=== PATIENT | female | born 1965 | race Caucasian/White ===

== ENCOUNTER 2025-04-04 12:37 | Emergency (ER) | payer OTHER, SELFPAY ==
[2025-04-04 12:39] VITALS: BP 124/71; PULSE 78; RESP 16; TEMP 36.6; O2SAT 98; BMI 22.8
--- NOTE | 2025-04-04 13:10 | EKG12_ITS ---
Test Reason : Blood Pressure : */* mmHG Vent. Rate : 94 BPM Atrial Rate : 94 BPM P-R Int : 186 ms QRS Dur : 80 ms QT Int : 338 ms P-R-T Axes : 48 20 26 degrees QTcB Int : 422 ms Normal sinus rhythm Normal ECG Confirmed by ANI PATEL, JUSTIN ([id number]), department editor ANGIE SPENCER ([id number]) on 04/05/2025 8:37:41 AM Referred By: Confirmed By: JUSTIN LAW MD
--- NOTE | 2025-04-04 13:11 | EDS_ITS ---
HPI History of Present Illness Chief Complaint: Chest Pain Informant: patient Onset/Context/Timing Onset: Weeks (1) Activity at onset: gradual Timing: Continuous Quality: Positive for Dull Location: Left Chest and - (Left neck) Worsened By: Nothing Relieved By: Nothing Associated Symptoms: Negative for Nausea, Vomiting, Diaphoresis, Dyspnea, Cough, Fever, Lightheadedness, Acid Reflux or Palpitations Narrative Narrative: Patient presents with left-sided neck and chest pain that began 1 week ago. Patient states it has been constant but waxes and wanes. Patient states it came on gradually. Patient describes it as dull. Patient states it is over the left neck and left chest area. Patient states nothing makes her symptoms better nothing makes them worse. Patient denies any shortness of breath or cough. Patient denies any fevers or chills. Patient denies any palpitations. CVD Risk Factors: Negative for Hypertension, Diabetes, Hypercholesterolemia, Family History 1' </=55 or Smoking PE Risk Factors: Negative for Recent Travel/Surgery, Recent Immobilization, Prior DVT or PE, Cancer or OCP + Smoking + >/=35 PFSH PFSH Medical History Anxiety Allergy/AdvReac Type Severity Reaction Status Date / Time amoxicillin Allergy Rash Verified 04/04/25 12:43 erythromycin base Allergy Rash Verified 04/04/25 12:43 Surgical History no surgical history no surgical history Social History housing: house Smoking Status: Never smoker [facility] ED Constitutional Constitutional ED: Denies chills or fever(s) Eyes Eyes: Denies blurry vision or change in vision ENT ENT ED: Denies rhinorrhea or sore throat Cardiovascular Cardiovascular: Reports chest pain; Denies palpitations Respiratory/Chest Respiratory/Chest: Denies cough or dyspnea Gastrointestinal Gastrointestinal: Denies nausea or vomiting Genitourinary Genitourinary ED: Denies dysuria or hematuria Musculoskeletal Musculoskeletal: Reports neck pain; Denies back pain Integumentary Denies abscess or rash Neurologic Neurologic: Denies headache(s) or weakness Allergic/Immunologic Allergic/Immunologic ED: Denies mouth swelling or urticaria EXAM Physical Exam Const Vital Signs: 04/04/25 12:39 04/04/25 12:55 04/04/25 12:55 Temperature 97.8 F Temperature Source Oral Pulse Rate 78 Respiratory Rate 16 Respiratory Effort Normal Non-Labored Normal Non-Labored Respiratory Pattern Normal Blood Pressure 124/71 H Blood Pressure Mean 88 Pulse Ox 98 Oxygen Delivery Method Room Air 04/04/25 13:16 04/04/25 13:39 04/04/25 14:00 Temperature Temperature Source Pulse Rate 90 95 Respiratory Rate 16 Respiratory Effort Respiratory Pattern Blood Pressure 120/64 119/70 Blood Pressure Mean 82 86 Pulse Ox 100 99 Oxygen Delivery Method Room Air Positive well nourished and well developed Constitutional Narrative: BMI is 22.8. General Appearance ED: well developed and NAD HEENT Reports moist mucous membranes normocephalic and atraumatic Neck supple and no JVD Chest Wall palpation of chest normal Resp normal respiratory effort and clear to auscultation bilaterally Cardio regular rate and regular rhythm GI soft to palpation, non-tender and non-distended Extremity normal to inspection Neuro oriented x3, CN's II-XII intact bilaterally and no sensory deficits noted Sensorium / Orientation: awake and alert Motor Exam: strength 5/5 throughout Psych mental status grossly normal Heart Score History: Slightly/Non-Suspicious ECG: Normal Age: >45 - <65 years Risk Factors: No Risk Factors Troponin: </= Normal Limit Score: 1 MDM MDM MDM Narrative Medical decision making narrative: Differential diagnosis includes cardiac dysrhythmia, cardiac ischemia, pneumonia, bronchitis, electrolyte abnormality, gastroesophageal reflux disease, and anxiety. EKG will be obtained to assess for cardiac dysrhythmia and cardiac ischemia. Chest x-ray will be obtained to assess for pneumonia and bronchitis. CBC will be obtained to assess for leukocytosis and anemia. Basic metabolic profile will be obtained to assess for electrolyte abnormality and renal function. High-sensitivity troponin will be obtained to assess for cardiac ischemia. History & Record Review Additional record(s) reviewed:: No prior records Lab Data Attestation: I reviewed the patient's lab results. Lab results narrative: CBC was reviewed and was within normal. Basic metabolic profile was reviewed and was essentially within normal limits. High-sensitivity troponin was reviewed and was less than 6. Labs: Laboratory Results - last 24 hr 04/04/25 12:53 WBC 9.8 RBC 4.71 Hgb 15.3 H Hct 43.7 MCV 92.8 MCH 32.5 H MCHC 35.0 RDW Std Deviation 44.6 H RDW Coeff of [place] 13.1 Plt Count 247 MPV 9.8 Immature Gran % (Auto) 0.400 Neut % (Auto) 68.8 Lymph % (Auto) 23.1 [place] % (Auto) 5.8 Eos % (Auto) 1.3 Baso % (Auto) 0.6 Absolute Neuts (auto) 6.7 Absolute Lymphs (auto) 2.26 Nucleated RBC % 0 Sodium 135 Potassium 4.5 Chloride 97 L Carbon Dioxide 22.2 Anion Gap 16 H BUN 10 Creatinine 0.66 L Estim Creat Clear Calc 92.58 Est GFR (MDRD) Non-Af 101 BUN/Creatinine Ratio 14.7 Glucose 109 H Calcium 9.6 Troponin T High Sens < 6 Radiography Chest X-Ray - ED: 2 View, Read by ED Physician, Read by Radiologist and No Acute Disease Diagnostic Testing: Clinical Impression(s) from Imaging Studies Chest X-Ray 04/04/25 13:15 IMPRESSION: No acute cardiopulmonary process. Reading Location: [facility] PA and lateral chest x-ray was obtained. There are 2 views. On my independent interpretation, lung zamudio are clear. There is normal cardiac silhouette. Bon y thorax is normal. There is no acute process noted. Radiologist also interpreted the x-ray and agrees. EKG Initial EKG: Attestation: I personally reviewed and interpreted this EKG as follows: Interpretation: Sinus Rhythm (94) and No Acute Injury Pattern Comments: EKG was obtained. On my independent interpretation, it showed a normal sinus rhythm with a rate of 94. IA interval, QRS interval, and QTc intervals were all normal. [place] was normal. There are no acute ST or T wave changes. Prior EKG tracings: not available for review Prior: No Prior Treatment and Re-Evaluation :: Patient was given aspirin here. Patient was advised of her findings. Patient has a HEART score of 1. Patient was advised that this is low risk for acute cardiac event. Patient was instructed to follow-up with her primary care physician in 5 to 7 days. Patient understood and was agreeable with the plan. All questions were answered. Discharge Plan Triage Chief Complaint: Chest Pain Other Complaint: Other, Pain/Inj ED Provider: Matthieu Soria Dx/Rx/DC Orders Clinical Impression: Chest pain, Neck pain on left side Instructions: ED Chest Pain, Uncertain Cause, ED Neck Pain Primary Care Provider: Leelee Trejo Referrals: Leelee Trejo, [facility] [Primary Care Provider, Family Practice] - 5-7 Days Print Language: [place] Disposition Disposition: Home, Self Care
--- NOTE | 2025-04-04 13:15 | RAD_ITS ---
PROCEDURE: CHEST PA AND LATERAL 04/04/2025 REASON FOR EXAM: CHEST PAIN TECHNIQUE: Procedure Code: RADCXR Modality: DX Procedure: CHEST PA AND LATERAL COMPARISON: None FINDINGS: Lungs: The lungs are symmetrically expanded. There is no consolidation. There is no peribronchial thickening. There is no pulmonary vascular redistribution. Pleura: No pleural effusion seen. There o evidence of pneumothorax. Heart and mediastinum: No mediastinal widening or mediastinal shift. The cardiac silhouette is not enlarged. Osseous: No acute fracture is seen. RAD/Chest PA and Lateral IMPRESSION: No acute cardiopulmonary process. Reading Location: [id number]
[2025-04-04 13:18] LABS: Hematocrit 43.7 % (37-47); Hemoglobin 15.3 g/dL (12.0-15.0); Immature Granulocytes Count 0.040 X10^3/uL (0.0-0.0); Mean Corp Hgb Conc 35.0 g/dL (32-36); Mean Corpuscular Volume 92.8 fL (81-99); Mean Platelet Vol. 9.8 fl (6.2-12.0); NRBC Flagged by Analyzer 0 % (0-5); Platelet Count 247 K/mm3 (150-450); RBC Distribution Width CV 13.1 % (11.6-14.6); RBC Distribution Width SD 44.6 fl (35.1-43.9); Red Blood Count 4.71 M/mm3 (4.2-5.4); White Blood Count 9.8 K/mm3 (4.4-11.0)
[2025-04-04 13:38] LABS: Anion Gap 16 (5-15); BUN 10 mg/dL (4-19); BUN/Creat Ratio 14.7 RATIO (10-20); Calcium,Total 9.6 mg/dL (7.6-11.0); Carbon Dioxide 22.2 mmol/L (21.0-32.0); Chloride 97 mmol/L (98-108); Estimated Creatinine Clearance 92.58 ml/min (50-250); Glucose 109 mg/dL (70-99); Potassium 4.5 mmol/L (3.3-5.1); Troponin T High Sensitivity < 6 ng/L (<=14)
[2025-04-04 13:39] VITALS: BP 120/64; PULSE 90; O2SAT 100
[2025-04-04 14:00] VITALS: BP 119/70; PULSE 95; RESP 16; O2SAT 99
[2025-04-04 14:54] VITALS: BP 119/70; PULSE 95; RESP 16; TEMP 36.7; O2SAT 99
[2025-04-04 15:00] VITALS: BP 103/72; O2SAT 98
== END 2025-04-04 15:11 | disposition home or self-care (01) ==
PROVIDERS: Emergency Provider Emergency Medicine; PCP Nurse Practitioner; Visit Provider Emergency Medicine
DX: R07.9 Chest pain, unspecified (principal); M54.2 Cervicalgia
CPT/HCPCS: 71046; 80048; 84484; 85025; 93005; 99284; A4216